=== PATIENT | male | born 2000 | race African-American/Black ===

== ENCOUNTER 2022-05-05 09:40 | Emergency (ER) | payer SELFPAY ==
[~2022-05-05] VITALS: Ht 188 cm; Wt 101.0 kg
[2022-05-05 09:44] VITALS: BP 147/85
[2022-05-05] MEDS ORDERED: CEPH-558 PO (09:51)
== END 2022-05-05 09:56 | disposition home or self-care (01) ==
LOC: EMS 09:43
DX: S61.214D Laceration without foreign body of right ring finger without damage to nail, subsequent encounter (principal); F12.90 Cannabis use, unspecified, uncomplicated; W45.8XXD Other foreign body or object entering through skin, subsequent encounter
CPT/HCPCS: 99283; Z7502

== ENCOUNTER 2022-09-03 10:53 | Emergency (ER) | payer MEDICAID ==
[~2022-09-03] VITALS: Ht 190.5 cm; Wt 104.5 kg
[~2022-09-03 10:53] MED LIST: CEPH-558 PO
[2022-09-03 11:07] VITALS: TEMP 98.8
[2022-09-03 11:16] LABS: COVID AG,FIA SOURCE NASOPHARYNGEAL
[2022-09-03 11:59] LABS: INFLUENZA TYPE A NEGATIVE FOR TYPE A (NEGATIVE); INFLUENZA TYPE B NEGATIVE FOR TYPE B (NEGATIVE)
[2022-09-03 12:01] LABS: RAPID GROUP A STREP POSITIVE (NEGATIVE)
[2022-09-03 12:08] VITALS: BP 120/77; PULSE 86; RESP 18
[2022-09-03] MEDS ORDERED: PENI500T2 PO (12:17)
== END 2022-09-03 12:55 | disposition home or self-care (01) ==
LOC: EMS 10:53
DX: J02.0 Streptococcal pharyngitis (principal); F12.90 Cannabis use, unspecified, uncomplicated; Z20.822 Contact with and (suspected) exposure to COVID-19
CPT/HCPCS: 87430; 87804; 99283

== ENCOUNTER 2023-09-19 14:56 | Emergency (ER) | payer SELFPAY ==
[~2023-09-19] VITALS: Ht 190.5 cm; Wt 125.0 kg
[~2023-09-19 14:56] MED LIST changes: -CEPH-558 PO; +PENI500T2 PO
[2023-09-19 14:59] VITALS: TEMP 98.2
[2023-09-19] MEDS ORDERED: IBUP-1492 PO (15:56)
[2023-09-19 16:05] VITALS: BP 118/74; PULSE 58; RESP 16
[2023-09-19] MEDS: IBUPROFEN 600 MG TABLET PO ONE (16:10)
== END 2023-09-19 16:22 | disposition home or self-care (01) ==
LOC: EMS 14:56
DX: S01.01XA Laceration without foreign body of scalp, initial encounter (principal); F12.90 Cannabis use, unspecified, uncomplicated; X58.XXXA Exposure to other specified factors, initial encounter; Y93.89 Activity, other specified; Y92.89 Other specified places as the place of occurrence of the external cause; Y99.8 Other external cause status
CPT/HCPCS: 12001; 99282; Z7502; Z7610

== ENCOUNTER 2023-09-28 04:15 | Emergency (ER) | payer SELFPAY ==
[~2023-09-28] VITALS: Ht 190.5 cm; Wt 125.0 kg
[~2023-09-28 04:15] MED LIST changes: +IBUP-1492 PO; -PENI500T2 PO
[2023-09-28 04:19] VITALS: BP 128/83; PULSE 72; RESP 16; TEMP 98
== END 2023-09-28 04:33 | disposition home or self-care (01) ==
LOC: EMS 04:16
DX: S09.90XD Unspecified injury of head, subsequent encounter (principal); F12.90 Cannabis use, unspecified, uncomplicated; Z48.02 Encounter for removal of sutures; X58.XXXD Exposure to other specified factors, subsequent encounter
CPT/HCPCS: 99282; Z7502